=== PATIENT | female | born 1995 | race Caucasian/White ===

== ENCOUNTER 2021-08-22 10:43 | Day surgery (SDC) | payer OTHER ==
[~2021-08-22] VITALS: Ht 157.5 cm; Wt 47.2 kg
[2021-08-22] MEDS ORDERED: PRENATAL CAPLE1 EAC1 (10:53)
== END 2021-08-22 18:00 | disposition home or self-care (01) ==
LOC: ER 10:43 → CIR.AMB 15:22
PROVIDERS: ATTEND Obstetrics & Gynecology
DX: O02.1 Missed abortion (principal); Z20.822 Contact with and (suspected) exposure to COVID-19